=== PATIENT | male | born 1960 | race Caucasian/White ===

== ENCOUNTER 2023-02-06 14:56 | Outpatient (CLI) | payer OTHER | END 2023-02-06 14:57 | disposition home or self-care (01) | LOC: ULT 14:56 | PROVIDERS: ATTEND Internal Medicine Cardiovascular Disease | DX: I48.19 Other persistent atrial fibrillation (principal); E66.9 Obesity, unspecified; G47.33 Obstructive sleep apnea (adult) (pediatric); I10 Essential (primary) hypertension; I08.3 Combined rheumatic disorders of mitral, aortic and tricuspid valves; Z99.89 Dependence on other enabling machines and devices; Z79.01 Long term (current) use of anticoagulants | CPT/HCPCS: 93306 ==

== ENCOUNTER 2023-02-20 06:06 | Day surgery (SDC) | payer OTHER ==
[2023-02-17 14:18] VITALS: BMI 35.6
[2023-02-20] MEDS ORDERED: fentaNYL 50 mcg/mL 1 mL Vial ONE (06:52)
[2023-02-20] MEDS ORDERED: Propofol 1,000 MG/100 ML VIAL IV ONE (06:52)
[2023-02-20] MEDS ORDERED: Midazolam HCl 2 mg/2 ml Vial ONE (06:52)
[2023-02-20] MEDS ORDERED: cefTRIAXone (ROCEPHIN) 2 GM VIAL ONE (07:24)
[2023-02-20] MEDS ORDERED: Sodium Chloride 0.9% 100 ML ONE (07:24)
[2023-02-20] MEDS ORDERED: PROPOFOL 200 MG/20 ML VIAL ONE (07:39)
[2023-02-20] MEDS ORDERED: Lidocaine 1% PF 5 ML VIAL ONE (07:39)
== END 2023-02-20 09:35 | disposition home or self-care (01) ==
LOC: SDC 06:06
PROVIDERS: ATTEND Urology
PROC: 0VB03ZX Excision of Prostate, Percutaneous Approach, Diagnostic (ICD-10-PCS; principal; 2023-02-20)
DX: C61 Malignant neoplasm of prostate (principal); N40.0 Benign prostatic hyperplasia without lower urinary tract symptoms; E29.1 Testicular hypofunction; I10 Essential (primary) hypertension; R97.20 Elevated prostate specific antigen [PSA]; Z98.890 Other specified postprocedural states; Z90.89 Acquired absence of other organs; Z79.899 Other long term (current) drug therapy; Z88.0 Allergy status to penicillin
CPT/HCPCS: G0416; J0696; J2250; J2704; J3010; J3490